=== PATIENT | male | born 1980 | race Caucasian/White ===

== ENCOUNTER 2024-03-26 13:29 | Emergency (ER) | payer OTHER ==
[~2024-03-26] VITALS: Ht 172.7 cm; Wt 74.8 kg
[2024-03-26 14:07] VITALS: BP 124/79; PULSE 54; RESP 20; TEMP 98; O2SAT 98
[2024-03-26] MEDS: KETOROLAC 30 MG/ML VIAL IM ONE (14:58)
[2024-03-26] MEDS: LIDOCAINE MPF 1% 10 MG/ML VIAL INJ ONE ×2 (15:29→15:30)
[2024-03-26] MEDS: BACITRACIN OINT 500 UNITS/GM PKT TP ONE (15:30)
[2024-03-26] MEDS ORDERED: IBUP-2213 PO (15:58)
[2024-03-26] MEDS ORDERED: BACI-418 TP (15:58)
[2024-03-26 16:00] VITALS: BP 118/64; PULSE 61; RESP 14; O2SAT 96
== END 2024-03-26 16:05 | disposition home or self-care (01) ==
LOC: MED 13:29
DX: S81.812A Laceration without foreign body, left lower leg, initial encounter (principal); W26.8XXA Contact with other sharp object(s), not elsewhere classified, initial encounter; Y93.89 Activity, other specified; Y92.89 Other specified places as the place of occurrence of the external cause; Y99.0 Civilian activity done for income or pay
CPT/HCPCS: 12004; 90471; 90715; 96372; 99284; J1885; J2003